=== PATIENT | female | born 1925 | race American Indian/Alaskan Native ===

== ENCOUNTER 2016-11-30 15:12 | Emergency (ER) | payer MEDICARE, OTHER, MEDICAID ==
--- NOTE | 2016-11-30 15:15 | EDM.PDOC ---
ED HISTORY OF PRESENT ILLNESS - General Chief Complaint: Respiratory Problem Stated Complaint: HARD TIME BREATHING,DIZZY Time Seen by Provider: 11/30/16 15:14 Source of Information: Reports: Patient, Family, Old records, RN, RN notes reviewed History Limitations: Reports: No limitations - History of Present Illness INITIAL COMMENTS - FREE TEXT/NARRATIVE: Arrives by POV with caregiver with complaint of sinus drainage causing cough with mucus in throat and feeling of SOB. Patient also complained of vertigo with "room spin" dizziness. Denies falls or injuries. Had a few episodes of nasea, but denies vomiting. Severity: moderate Location, General: Reports: head Quality: Reports: Ache Improves with: Reports: None Worsens with: Reports: None Associated Symptoms (General): Reports: no other symptoms - Related Data Allergies/ADRs: Allergies Allergy/AdvReac Type Severity Reaction Status Date / Time calcium Allergy Other Verified 11/30/16 15:25 celecoxib Allergy Other Verified 11/30/16 15:25 diphenhydramine Allergy Other Verified 11/30/16 15:25 [From Benadryl] doxycycline Allergy Other Verified 11/30/16 15:25 methylprednisolone Allergy Other Verified 11/30/16 15:25 Home Meds: Home Meds Simvastatin [Zocor] 20 mg PO BEDTIME #30 tablet 07/09/16 [Rx] amLODIPine [Norvasc] 5 mg PO DAILY #30 tablet 07/09/16 [Rx] Sodium Chloride 1 gm PO BIDMEALS #60 tablet 07/16/16 [Rx] Past Medical History HEENT History: Reports: Allergic rhinitis Cardiovascular History: Reports: High cholesterol, Hypertension Respiratory History: Reports: COPD, Pneumonia, recurrent Gastrointestinal History: Reports: GI bleed Genitourinary History: Reports: None RAIL LAYER History: Reports: None Musculoskeletal History: Reports: None Neurological History: Reports: None Psychiatric History: Reports: None Endocrine/Metabolic History: Reports: None Hematologic History: Reports: Anemia Immunologic History: Reports: None Oncologic (Cancer) History: Reports: None Dermatologic History: Reports: None - Infectious Disease History Infectious Disease History: Reports: None - Past Surgical History Head Surgeries/Procedures: Reports: None GI Surgical History: Reports: Appendectomy, Cholecystectomy Female Surgical History: Reports: Hysterectomy Social & Family History - Family History Family Medical History: Noncontributory - Tobacco Use Smoking Status *Q: Never Smoker Second Hand Smoke Exposure: No - Caffeine Use Caffeine Use: Reports: Coffee - Recreational Drug Use Recreational Drug Use: No - Living Situation & Occupation Living situation: Reports: , alone Occupation: retired ED ROS GENERAL - Review of Systems Review Of Systems: ROS reveals no pertinent complaints other than HPI. ED EXAM, GENERAL - Physical Exam Exam: See Below Exam Limited By: No limitations General Appearance: alert, WD/WN, no apparent distress Eye Exam: bilateral eye: normal inspection Ears: normal external exam, normal TMs Nose: other (moderate sinus inflammation with yellow-greish nasal mucus. Post nasal drip. ) Throat/Mouth: Normal inspection, Normal lips, Normal teeth, Normal gums, Normal oropharynx, Normal voice, No airway compromise Head: atraumatic, normocephalic Neck: normal inspection Respiratory/Chest: no respiratory distress Cardiovascular: normal peripheral pulses, regular rate, rhythm, no edema, no gallop, no JVD, no murmur, no rub GI/Abdominal: normal bowel sounds, soft, non tender, no organomegaly, no distention, no abnormal bruit, no mass (Female) Exam: Deferred Rectal (Female) Exam: Deferred Back Exam: normal inspection, full range of motion, NT Extremities: normal inspection, normal range of motion, non-tender, normal capillary refill, no pedal edema Neurological: alert, oriented, CN II-XII intact, normal cognition, normal gait, normal reflexes, no motor/sensory deficits Psychiatric: normal affect, normal mood Lymphatic: no adenopathy EKG INTERPRETATION EKG Date: 11/30/16 Time: 15:53 Rhythm: other (sinus rhythm) Rate (beats/min): 71 [place]: normal P-wave: present QRS: other (inferior Q wave) ST-T: normal QT: normal Course - Vital Signs Last Recorded V/S: Last Vital Signs Temp 36.6 C 11/30/16 15:23 Pulse 67 11/30/16 16:53 Resp 18 11/30/16 15:23 BP 123/67 11/30/16 17:10 Pulse Ox 97 11/30/16 16:53 - Orders/Labs/Meds Orders: Active Orders 24 hr Category Date Time Status EKG 12 Lead [EKG Documentation Completion] [RC] STAT Care 11/30/16 15:44 Active Overnight Pulse Oximetry [RC] Click To Edit Care 11/30/16 15:45 Active Peripheral IV Care [RC] . DIRECTED Care 11/30/16 15:45 Active RT Aerosol Therapy [RC] ASDIRECTED Care 11/30/16 15:47 Active CULTURE BLOOD [] Stat Lab 11/30/16 15:53 Received CULTURE BLOOD [] Stat Lab 11/30/16 15:58 Received Sodium Chloride 0.9% [Saline Flush] Med 11/30/16 15:44 Active 10 ml FLUSH ASDIRECTED PRN Blood Culture x2 Reflex Set [OM.PC] Stat Oth 11/30/16 15:45 Ordered Peripheral IV Insertion Adult [OM.PC] Stat Oth 11/30/16 15:44 Ordered Pulse Oximetry Continuous Monitoring [OM.PC] Routine Oth 11/30/16 15:45 Ordered RT Supplemental Oxygen Titration [RESPCARE] Stat Ot 11/30/16 15:45 Active Medication Orders Sodium Chloride (Saline Flush) 10 ml FLUSH ASDIRECTED PRN PRN Reason: Keep Vein Open Last Admin: 11/30/16 17:34 Dose: 10 ml Labs: Laboratory Tests 11/30/16 11/30/16 11/30/16 Range/Units 15:58 15:58 15:58 WBC 5.6 (5.0-10.0) 10^3/uL RBC 4.24 (4.2-5.4) 10^6/uL Hgb 12.0 (12.0-16.0) g/dL Hct 36.9 L (37.0-47.0) % MCV 87.0 (80-100) fL MCH 28.3 (27.0-34.0) pg MCHC 32.5 L (33.0-35.0) g/dL Plt Count 232 (150-450) 10^3/uL Neut % (Auto) 67.0 (42.2-75.2) % Lymph % (Auto) 22.1 (20.5-50.1) % [place] % (Auto) 9.5 H (2-8) % Eos % (Auto) 0.9 L (1.0-3.0) % Baso % (Auto) 0.5 (0.0-1.0) % Sodium 133 L (135-145) mmol/L Potassium 3.9 (3.6-5.0) mmol/L Chloride 103 (101-111) mmol/L Carbon Dioxide 26.0 (21.0-31.0) mmol/L Anion Gap 7.9 BUN 15 (7-18) mg/dL Creatinine 0.6 (0.6-1.3) mg/dL Est Cr Clr Drug Dosing 45.66 mL/min Estimated GFR (MDRD) > 60 BUN/Creatinine Ratio 25.00 Glucose 126 H (74-105) mg/dL Lactic Acid 0.8 (0.5-2.2) mmol/L Calcium 8.6 (8.4-10.2) mg/dl Total Bilirubin 0.5 (0.2-1.0) mg/dL AST 22 (10-42) IU/L ALT 12 (10-60) IU/L Alkaline Phosphatase 74 (42-121) IU/L Troponin I < 0.02 (0.00-0.02) ng/ml B-Natriuretic Peptide 51 (0-100) pg/ml Total Protein 6.5 L (6.7-8.2) g/dl Albumin 3.8 (3.2-5.5) g/dl Globulin 2.7 Albumin/Globulin Ratio 1.41 Urine Color (YELLOW) Urine Appearance (CLEAR) Urine pH (5.0-9.0) Ur Specific [place] (1.005-1.030) Urine Protein (NEGATIVE) Urine Glucose (UA) (NEGATIVE) Urine Ketones (NEGATIVE) Urine Occult Blood (NEGATIVE) Urine Nitrite (NEGATIVE) Urine Bilirubin (NEGATIVE) Urine Urobilinogen (0.2-1.0) mg/dL Ur Leukocyte Esterase (NEGATIVE) Urine RBC /HPF Urine WBC (0-5/HPF) /HPF Ur Epithelial Cells /HPF Urine Bacteria (0-FEW/HPF) /HPF 11/30/16 Range/Units 17:00 WBC (5.0-10.0) 10^3/uL RBC (4.2-5.4) 10^6/uL Hgb (12.0-16.0) g/dL Hct (37.0-47.0) % MCV (80-100) fL MCH (27.0-34.0) pg MCHC (33.0-35.0) g/dL Plt Count (150-450) 10^3/uL Neut % (Auto) (42.2-75.2) % Lymph % (Auto) (20.5-50.1) % [place] % (Auto) (2-8) % Eos % (Auto) (1.0-3.0) % Baso % (Auto) (0.0-1.0) % Sodium (135-145) mmol/L Potassium (3.6-5.0) mmol/L Chloride (101-111) mmol/L Carbon Dioxide (21.0-31.0) mmol/L Anion Gap BUN (7-18) mg/dL Creatinine (0.6-1.3) mg/dL Est Cr Clr Drug Dosing mL/min Estimated GFR (MDRD) BUN/Creatinine Ratio Glucose (74-105) mg/dL Lactic Acid (0.5-2.2) mmol/L Calcium (8.4-10.2) mg/dl Total Bilirubin (0.2-1.0) mg/dL AST (10-42) IU/L ALT (10-60) IU/L Alkaline Phosphatase (42-121) IU/L Troponin I (0.00-0.02) ng/ml B-Natriuretic Peptide (0-100) pg/ml Total Protein (6.7-8.2) g/dl Albumin (3.2-5.5) g/dl Globulin Albumin/Globulin Ratio Urine Color Light yellow (YELLOW) Urine Appearance Clear (CLEAR) Urine pH 7.0 (5.0-9.0) Ur Specific [place] 1.015 (1.005-1.030) Urine Protein Negative (NEGATIVE) Urine Glucose (UA) Negative (NEGATIVE) Urine Ketones Negative (NEGATIVE) Urine Occult Blood Negative (NEGATIVE) Urine Nitrite Negative (NEGATIVE) Urine Bilirubin Negative (NEGATIVE) Urine Urobilinogen 0.2 (0.2-1.0) mg/dL Ur Leukocyte Esterase Trace H (NEGATIVE) Urine RBC 0-5 /HPF Urine WBC 0-5 (0-5/HPF) /HPF Ur Epithelial Cells Few /HPF Urine Bacteria Few (0-FEW/HPF) /HPF Meds: Medications Generic Name Dose Route Start Last Admin Trade Name Freq PRN Reason Stop Dose Admin Sodium Chloride 10 ml 11/30/16 15:44 11/30/16 17:34 Saline Flush FLUSH 10 ml ASDIRECTED PRN Administration Keep Vein Open Discontinued Medications Generic Name Dose Route Start Last Admin Trade Name Freq PRN Reason Stop Dose Admin Albuterol/Ipratropium 3 ml 11/30/16 15:47 11/30/16 16:01 Duoneb 3.0-0.5 Mg/3 Ml NEB 11/30/16 15:48 3 ml ONETIME ONE Administration - Radiology Interpretation Free Text/Narrative:: Chest x-ray: Per rad report no acute findings. Departure - Departure Time of Disposition: 17:59 Disposition: Home, Self-Care 01 Condition: good Clinical Impression: Sinusitis Qualifiers: Sinusitis location: unspecified location Chronicity: acute Recurrence: non- recurrent Qualified Code(s): J01.90 - Acute sinusitis, unspecified Acute labyrinthitis Qualifiers: Laterality: unspecified laterality Qualified Code(s): H83.09 - Labyrinthitis, unspecified ear Instructions: Sinusitis, Adult, [id number], Labyrinthitis, [id number] Forms: ED Department Discharge Additional Instructions: Meclizine 25mg. Amoxicillin 500mg. Follow up in clinic in 4 to 5 days if not completely improved. - My Orders Last 24 Hours: My Active Orders 11/30/16 15:44 EKG 12 Lead [EKG Documentation Completion] [RC] STAT Sodium Chloride 0.9% [Saline Flush] 10 ml FLUSH ASDIRECTED PRN Peripheral IV Insertion Adult [OM.PC] Stat 11/30/16 15:45 Overnight Pulse Oximetry [RC] Click To Edit Peripheral IV Care [RC] . DIRECTED Blood Culture x2 Reflex Set [OM.PC] Stat Pulse Oximetry Continuous Monitoring [OM.PC] Routine RT Supplemental Oxygen Titration [RESPCARE] Stat 11/30/16 15:47 RT Aerosol Therapy [RC] ASDIRECTED 11/30/16 15:53 CULTURE BLOOD [BC] Stat 11/30/16 15:58 CULTURE BLOOD [BC] Stat - Assessment/Plan Last 24 Hours: My Active Orders 11/30/16 15:44 EKG 12 Lead [EKG Documentation Completion] [RC] STAT Sodium Chloride 0.9% [Saline Flush] 10 ml FLUSH ASDIRECTED PRN Peripheral IV Insertion Adult [OM.PC] Stat 11/30/16 15:45 Overnight Pulse Oximetry [RC] Click To Edit Peripheral IV Care [RC] . DIRECTED Blood Culture x2 Reflex Set [OM.PC] Stat Pulse Oximetry Continuous Monitoring [OM.PC] Routine RT Supplemental Oxygen Titration [RESPCARE] Stat 11/30/16 15:47 RT Aerosol Therapy [RC] ASDIRECTED 11/30/16 15:53 CULTURE BLOOD [BC] Stat 11/30/16 15:58 CULTURE BLOOD [BC] Stat
[2016-11-30] MEDS ORDERED: Sodium Chloride 0.9% 10 ML Syringe FLUSH PRN (15:44)
[2016-11-30] MEDS ORDERED: Albuterol/Ipratropium 3.0-0.5 MG/3 ML Neb Soln NEB ONE (15:47)
[2016-11-30 16:28] LABS: CHLORIDE,CL 103 mmol/L (101-111); SODIUM,NA 133 mmol/L (135-145)
[2016-11-30 17:10] VITALS: BP 123/67
--- NOTE | 2016-12-04 13:28 | EKG ---
11/30/2016 - DESTINEE BEAL J - TIME: 3:53 p.m. EKG per my reading shows sinus rhythm with inferior Q-waves and inverted T- waves. [facility] /[id number]
== END 2016-11-30 18:25 | disposition home or self-care (01) ==
LOC: DL.ED 15:12
DX: J01.90 Acute sinusitis, unspecified (principal); H83.09 Labyrinthitis, unspecified ear; E78.00 Pure hypercholesterolemia, unspecified; I10 Essential (primary) hypertension; J44.9 Chronic obstructive pulmonary disease, unspecified; Z87.01 Personal history of pneumonia (recurrent); Z79.899 Other long term (current) drug therapy; Z86.2 Personal history of diseases of the blood and blood-forming organs and certain disorders involving the immune mechanism; Z90.49 Acquired absence of other specified parts of digestive tract; Z90.710 Acquired absence of both cervix and uterus; Z88.8 Allergy status to other drugs, medicaments and biological substances
CPT/HCPCS: 36415; 71010; 80053; 81001; 83605; 83880; 84484; 85025; 87040; 93005; 94640; 99285; J7050; 93010; 99284

== ENCOUNTER 2016-12-13 16:05 | Emergency (ER) | payer MEDICARE, OTHER, MEDICAID ==
--- NOTE | 2016-12-13 16:26 | EDM.PDOC ---
ED HPI GENERAL MEDICAL PROBLEM - General Chief Complaint: General Stated Complaint: IN BY AMBULANCE Time Seen by Provider: 12/13/16 16:15 Source of Information: Reports: Patient History Limitations: Reports: No limitations - History of Present Illness INITIAL COMMENTS - FREE TEXT/NARRATIVE: This 89 yo female patient was brought to the ED by [facility] due to a near syncope event. The patient reports she was in her home walking when she got dizzy and fell to her knees. The patient was assisted to her feet and into her chair by friends. The patient reports she has had increased pressure in her sinuses and was seen in the ED for a sinusitis 2 weeks ago. The patient was started on antibiotics, but the patient stopped taking the antibiotics and "threw them away " due to them making her dizzy. The patient reports she had similar symptoms previously, but has not been able to figure out why she gets dizzy at different times. The patient reports she takes her medications as directed. The patient has a history of htn and low sodium levels. Onset: today, sudden Duration: Intermittent Location: Reports: generalized Quality: Reports: Other Severity: moderate Improves with: Reports: Rest Worsens with: Reports: Movement Context: Reports: Other (walking in her home) Associated Symptoms: Reports: syncope (near) Bilateral Feet Pain Score (Numeric/FACES): 3 - Related Data Allergies Allergy/AdvReac Type Severity Reaction Status Date / Time calcium Allergy Other Verified 12/13/16 16:16 celecoxib Allergy Other Verified 12/13/16 16:16 diphenhydramine Allergy Other Verified 12/13/16 16:16 [From Benadryl] doxycycline Allergy Other Verified 12/13/16 16:16 methylprednisolone Allergy Other Verified 12/13/16 16:16 Home Meds: Home Meds Simvastatin [Zocor] 20 mg PO BEDTIME #30 tablet 07/09/16 [Rx] amLODIPine [Norvasc] 5 mg PO DAILY #30 tablet 07/09/16 [Rx] Sodium Chloride 1 gm PO BIDMEALS #60 tablet 07/16/16 [Rx] Past Medical History HEENT History: Reports: Allergic rhinitis Other HEENT History: wears glasses Cardiovascular History: Reports: High cholesterol, Hypertension Respiratory History: Reports: COPD, Pneumonia, recurrent Gastrointestinal History: Reports: GI bleed Genitourinary History: Reports: None 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 Musculoskeletal History: Reports: None Neurological History: Reports: None Psychiatric History: Reports: None Endocrine/Metabolic History: Reports: None Hematologic History: Reports: Anemia Immunologic History: Reports: None Oncologic (Cancer) History: Reports: None Dermatologic History: Reports: None - Infectious Disease History Infectious Disease History: Reports: None - Past Surgical History Head Surgeries/Procedures: Reports: None GI Surgical History: Reports: Appendectomy, Cholecystectomy Female Surgical History: Reports: Hysterectomy Social & Family History - Family History Family Medical History: Noncontributory - Tobacco Use Smoking Status *Q: Never Smoker Used Tobacco, but Quit: No Second Hand Smoke Exposure: No - Caffeine Use Caffeine Use: Reports: Coffee - Recreational Drug Use Recreational Drug Use: No - Living Situation & Occupation Living situation: Reports: , alone Occupation: retired ED ROS GENERAL - Review of Systems Review Of Systems: ROS reveals no pertinent complaints other than HPI. ED EXAM, GENERAL - Physical Exam Exam: See Below Exam Limited By: No limitations General Appearance: alert, WD/WN, anxious, moderate distress Eye Exam: bilateral eye: EOMI, normal inspection, PERRL Ears: normal external exam, normal canal, hearing grossly normal, normal TMs Nose: normal inspection, normal mucosa, no blood Throat/Mouth: Normal inspection, Normal lips, Normal teeth, Normal gums, Normal oropharynx, Normal voice, No airway compromise Head: atraumatic, normocephalic Neck: normal inspection, supple, non-tender, full range of motion Respiratory/Chest: no respiratory distress, lungs clear, normal breath sounds, no accessory muscle use, chest non-tender Cardiovascular: normal peripheral pulses, regular rate, rhythm, no edema, no gallop, no JVD, no murmur, no rub GI/Abdominal: normal bowel sounds, soft, non tender, no organomegaly, no distention, no abnormal bruit, no mass (Female) Exam: Deferred Rectal (Female) Exam: Deferred Back Exam: normal inspection, full range of motion, NT Extremities: normal inspection, normal range of motion, non-tender, normal capillary refill, no pedal edema Neurological: alert, oriented, CN II-XII intact, normal cognition Psychiatric: normal affect, anxious, depressed mood Skin Exam: Warm, Dry, Intact, Normal color, No rash Lymphatic: no adenopathy Course - Vital Signs Last Recorded V/S: Last Vital Signs Temp 36.4 C 04/27/17 16:17 Pulse 70 12/13/16 16:17 Resp 18 12/13/16 16:17 BP 196/105 H 12/13/16 17:24 Pulse Ox 100 12/13/16 16:17 - Orders/Labs/Meds Orders: Active Orders 24 hr Category Date Time Status EKG Documentation Completion [RC] URGENT Care 12/13/16 16:05 Active Labs: Laboratory Tests 12/13/16 12/13/16 12/13/16 Range/Units 16:17 16:17 16:50 WBC 7.1 (5.0-10.0) 10^3/uL RBC 4.41 (4.2-5.4) 10^6/uL Hgb 12.6 (12.0-16.0) g/dL Hct 38.0 (37.0-47.0) % MCV 86.2 (80-100) fL MCH 28.6 (27.0-34.0) pg MCHC 33.2 (33.0-35.0) g/dL Plt Count 249 (150-450) 10^3/uL Neut % (Auto) 71.7 (42.2-75.2) % Lymph % (Auto) 18.6 L (20.5-50.1) % [place] % (Auto) 9.1 H (2-8) % Eos % (Auto) 0.3 L (1.0-3.0) % Baso % (Auto) 0.3 (0.0-1.0) % Sodium 137 (135-145) mmol/L Potassium 3.8 (3.6-5.0) mmol/L Chloride 104 (101-111) mmol/L Carbon Dioxide 27.0 (21.0-31.0) mmol/L Anion Gap 9.8 BUN 15 (7-18) mg/dL Creatinine 0.7 (0.6-1.3) mg/dL Est Cr Clr Drug Dosing TNP Estimated GFR (MDRD) > 60 BUN/Creatinine Ratio 21.42 Glucose 112 H (74-105) mg/dL Calcium 8.7 (8.4-10.2) mg/dl Total Bilirubin 0.5 (0.2-1.0) mg/dL AST 21 (10-42) IU/L ALT 13 (10-60) IU/L Alkaline Phosphatase 88 (42-121) IU/L Troponin I < 0.02 (0.00-0.02) ng/ml Total Protein 6.8 (6.7-8.2) g/dl Albumin 4.0 (3.2-5.5) g/dl Globulin 2.8 Albumin/Globulin Ratio 1.43 Urine Color Yellow (YELLOW) Urine Appearance Slightly cloudy (CLEAR) Urine pH 7.0 (5.0-9.0) Ur Specific [place] 1.015 (1.005-1.030) Urine Protein Negative (NEGATIVE) Urine Glucose (UA) Negative (NEGATIVE) Urine Ketones Negative (NEGATIVE) Urine Occult Blood Negative (NEGATIVE) Urine Nitrite Negative (NEGATIVE) Urine Bilirubin Negative (NEGATIVE) Urine Urobilinogen 0.2 (0.2-1.0) mg/dL Ur Leukocyte Esterase Negative (NEGATIVE) Urine RBC 0-5 /HPF Urine WBC Not seen (0-5/HPF) /HPF Ur Epithelial Cells Rare /HPF Urine Bacteria Rare (0-FEW/HPF) /HPF Urine Mucus Rare /LPF Meds: Medications Discontinued Medications Generic Name Dose Route Start Last Admin Trade Name Freq PRN Reason Stop Dose Admin Amlodipine Besylate 5 mg 12/13/16 17:10 12/13/16 17:24 Norvasc PO 12/13/16 17:11 5 mg ONETIME ONE Administration Departure - Departure Time of Disposition: 18:01 Disposition: Home, Self-Care 01 Condition: fair Clinical Impression: Near syncope Instructions: Near-Syncope, [id number] Forms: ED Department Discharge Care Plan Goals: The patient was advised of the examination, EKG, lag, x-ray and CT results during the visit. The patient was given a dose of Norvasc while in the ED for her blood pressure. The patient should follow-up with a primary care provider for continued evaluation and treatment. If the patient has any additional symptoms or concerns, the patient should follow-up with her primary care facility or return to the emergency department. - My Orders Last 24 Hours: My Active Orders 12/13/16 16:05 EKG Documentation Completion [RC] URGENT - Assessment/Plan Last 24 Hours: My Active Orders 12/13/16 16:05 EKG Documentation Completion [RC] URGENT
--- NOTE | 2016-12-13 16:41 | CR ---
Clinical history: 89-year-old female experienced near syncopal episode. 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 Dense calcifications arch of the aorta and slight left ventricular configuration but no increase in heart size, new alveolar edema or dependent pleural fluid accumulation compared 30 November 2016 exam. No new lung mass, hilar lymphadenopathy or focal lobar pneumonia. No pneumothorax. CONCLUSION: No acute new cardiopulmonary abnormality since AP portable film 30 November 2016. Large hia tus hernia.
[2016-12-13 16:42] LABS: CHLORIDE,CL 104 mmol/L (101-111); SODIUM,NA 137 mmol/L (135-145)
--- NOTE | 2016-12-13 17:07 | CT ---
Clinical history: 89-year-old female with altered mentation and near syncopal episode reported on mo recent CT scan of the head January 2011 to have "atrophy and signs of multi-infarct ischemic disease ". Reevaluation please. Scan technique: Volume acquisition of data emergency unenhanced CT scan of the head obtained while t he patient was lying supine on the Siemens multi slice CT scanner [place], [place]. All data archived in the PACS system for storage and study (bone/brain windows). Interpretation: Uniformly thick bony calvarium without sign of skull fracture, underlying brain cont usion or abnormal extracerebral/intracranial epidural or subdural hematoma. Multiple large areas of decreased attenuation periventricular white matter both cerebral hemispheres as noted on 23 January 2011 exam i.e. unchanged. No new signs of supratentorial or posterior fossa mass lesion, hydrocephalus or acute intracerebral/ intraventricular/subarachnoid bleed. Generalized atrophy cerebral hemispheres and cerebellum. Brainstem unremarkable. Clearly pneumatized mastoid and paranasal sinuses i.e. no sign of inflammation. 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 No new signs of cranial mass, hydrocephalus or bleed.
[2016-12-13] MEDS ORDERED: amLODIPine 5 MG Tab PO ONE (17:10)
[2016-12-13 17:25] VITALS: BP 196/105
--- NOTE | 2016-12-15 10:28 | EKG ---
12/13/2016 - DESTINEE BEAL - This 12-lead EKG shows a normal sinus rhythm with a ventricular rate of 74. Normal axis and intervals. No acute ST-segment or T-wave changes. [facility] /[id number]
== END 2016-12-13 18:23 | disposition home or self-care (01) ==
LOC: DL.ED 16:05
DX: R55 Syncope and collapse (principal); I10 Essential (primary) hypertension; J44.9 Chronic obstructive pulmonary disease, unspecified; E78.00 Pure hypercholesterolemia, unspecified; Z88.8 Allergy status to other drugs, medicaments and biological substances; Z79.899 Other long term (current) drug therapy
CPT/HCPCS: 36415; 70450; 71010; 80053; 81001; 84484; 85025; 93005; 99285; A9270; 93010; 99284